=== PATIENT | female | born 1965 | race Caucasian/White ===

== ENCOUNTER → 2017-03-18 | Outpatient (CLI) | payer BC, OTHER | END | disposition home or self-care (01) | LOC: PCVCIMAG 10:50 | PROVIDERS: ATTEND Internal Medicine Cardiovascular Disease | DX: R00.0 Tachycardia, unspecified (principal); I10 Essential (primary) hypertension | CPT/HCPCS: 93325; 93351 ==

== ENCOUNTER → 2018-03-15 | Outpatient (CLI) | payer OTHER | END | disposition home or self-care (01) | LOC: PCVCIMAG 16:10 | DX: I07.1 Rheumatic tricuspid insufficiency (principal); I10 Essential (primary) hypertension; D86.9 Sarcoidosis, unspecified; Z82.49 Family history of ischemic heart disease and other diseases of the circulatory system | CPT/HCPCS: 93306 ==

== ENCOUNTER → 2018-04-19 | Outpatient (CLI) | payer OTHER ==
[~2018-04-19] MED LIST: DIAZEPAM 10 MG TABLET.; IOHEXOL 350 MG/ML 100 ML VIAL.; IOHEXOL 350 MG/ML 50 ML VIAL.; IV NORMAL SALINE 500ML BAG 500 ML; LIDOCAINE 1% Multi-Dose 50 ML VIAL.; MIDAZOLAM HCL/PF 2 MG/2 ML VIAL.; fentaNYL PF VIAL 100 MCG/2 ML VIAL
== END ==
LOC: PCVCINTER 11:08
DX: I77.89 Other specified disorders of arteries and arterioles (principal); I07.1 Rheumatic tricuspid insufficiency; E78.5 Hyperlipidemia, unspecified; Z87.891 Personal history of nicotine dependence; I10 Essential (primary) hypertension; Z82.49 Family history of ischemic heart disease and other diseases of the circulatory system
CPT/HCPCS: 75625; 93460; C1751; C1760; C1769; C1894; J1644; J2250; J3010; J7040; Q9967